=== PATIENT | female | born 1985 | race Caucasian/White ===

== ENCOUNTER 2016-06-12 06:50 | Inpatient (IN) | payer BC ==
[2016-06-12] MEDS ORDERED: IV START KIT ONE (07:19)
[2016-06-12] MEDS ORDERED: OXYTOCIN IN NS 500 ML IV ONE (07:20)
[2016-06-12] MEDS ORDERED: OXYTOCIN 10 UNITS/ML VIAL ONE (07:20)
[2016-06-12] MEDS ORDERED: LIDOCAINE 1% (PRES FREE) 30 ML VIAL ONE (07:20)
[2016-06-12] MEDS ORDERED: MINERAL OIL 25 ML BOT ONE (07:20)
[2016-06-12] MEDS ORDERED: PUMP TUBING ONE (07:20)
[2016-06-12] MEDS ORDERED: LIDOCAINE Viscous 2% 15 ML UDCUP ONE (07:20)
[2016-06-12] MEDS ORDERED: LACTATED RINGERS 1,000 ML ONE (07:20)
[2016-06-12] MEDS ORDERED: OXYTOCIN IN NS 334 ML IV PRN (07:51)
[2016-06-12 08:00] LABS: HEMATOCRIT 38.2 % (37.0-47.0); HEMOGLOBIN 12.9 gm/l (12.0-16.0); MEAN CELL VOLUME 91.8 fl (81.0-99.0); MEAN CORPUSCULAR HGB CONC 33.8 g/dl (33.0-37.0); RED CELL DISTRIBUTION WIDTH 14.2 % (11.5-14.5)
[2016-06-12 08:06] VITALS: BMI 36.6
[2016-06-12 08:19] LABS: AMPHETAMINES/METHAMPHETAMINES NEGATIVE (NEGATIVE); COCAINE NEGATIVE (NEGATIVE); MARIJUANA NEGATIVE (NEGATIVE); METHADONE NEGATIVE (NEGATIVE); OPIATES NEGATIVE (NEGATIVE); TRICYCLIC ANTIDEPRESSANTS NEGATIVE (NEGATIVE)
--- NOTE | 2016-06-12 08:38 | PDOC36 ---
Provider Note Note: cc: Admission H&P HPI: 31 y.o. year old DEREK 06/19/2016, by Ultrasound at 39w0d who presents for induction of labor for GDMA1. REVIEW OF SYSTEMS GENERAL:~ No fever or headache EYES:~ No double or blurry vision. CARDIOVASCULAR:~ No chest pain. RESPIRATORY:~ No severe shortness of breath or cough. GASTROINTESTINAL:~ No nausea or vomiting or right upper quadrant pain.~ PSYCHIATRIC:~ No anxiety or depression. PROBLEMS Term GDMA1 Tobacco use Abnormal Quad Screen History of Kidney Stones History of cocaine and marijuana use OB HISTORY #: 1, Date: 05/29/07, Sex: Female, Weight: 3.062 kg (6 lb 12 oz), GA: 40w0d, Delivery: Vaginal, Spontaneous Delivery, Apgar1: None, Apgar5: None, Living: Yes , Comments: in hospital for 2.5 days during pregnacy d/t kidney stones.~ #: 2, Date: None, Sex: None, Weight: None, GA: None, Delivery: None, Apgar1: None, Apgar5: None, Living: None, Comments: None PSH Ovarian Cystectomy Tonsillectoy SOC HX Reports that she has been smoking.~ She started smoking about 13 years ago. She has never used smokeless tobacco. She reports that she drinks alcohol. She reports that she uses illicit drugs (Marijuana and Cocaine). ALL No Known Allergies MEDICATIONS Current outpatient prescriptions:~ Vitamins 1 tablet by mouth everyday PHYSICAL EXAMINATION VITAL SIGNS:~ Estimated body mass index is 35.36 Total weight gain is 22.68 kg (50 lb) FHT:~ 130s category I [place]:~ q 2-4 min SVE:~ 3/80/-2 GENERAL:~ No distress CARDIOVASCULAR:~ Regular rate and rhythm, no murmur, JVD or pedal edema. RESPIRATORY:~ Clear to auscultation bilaterally, respiratory effort is nonlabored at rest. GASTROINTESTINAL:~ Gravid no fundal tenderness NEUROLOGIC:~ Deep tendon reflexes are 2+ in the knees.~ Cranial nerves II-XII are grossly intact. PSYCHIATRIC:~ Alert and oriented x3, judgement and memory is intact, mood is pleasant. LABS & STUDIES B+ Antibody- Rubella Immune Hep B- HIV- GC/Chlamydia- Trep- Hgb 11.2 GBS Negative ULTRASOUNDS 7 wk - [facility], changes DEREK, FHT 160 24 wks - DI, normal anatomy, male, posterior placenta, no previa ASSESSMENT 31 y.o. year old DEREK 06/19/2016, by Ultrasound at 39w0d here for induction of labor for GDMA1. PLAN GDMA1: CBG x 1, otherwise controlled during . AROM x clear fluid this AM, will continue to monitor with expectation of a vaginal delivery. History of Cocaine and MJ Use: UDS today and will consult Social Work. Tobacco Use: Discussed smoking cessation. Louis Hernandes MD MPH
[2016-06-12] MEDS ORDERED: FENTANYL 100 MCG/2 ML VIAL ONE (09:08)
[2016-06-12] MEDS ORDERED: FENTANYL 100 MCG/2 ML VIAL IV PRN (09:08)
[2016-06-12] MEDS ORDERED: FENTANYL/ROPIVACAINE EPIDURAL 250 ML EP ONE (10:05)
[2016-06-12] MEDS ORDERED: EPIDURAL PUMP SET ONE (10:05)
[2016-06-12] MEDS ORDERED: EPIDURAL PROCEDURE TRAY ONE (10:16)
[2016-06-12] MEDS ORDERED: NALOXONE HCL 0.4 MG/ML VIAL IV PRN (11:01)
[2016-06-12] MEDS ORDERED: ONDANSETRON 4 MG/2ML 2 ML VIAL IV PRN (11:01)
[2016-06-12] MEDS ORDERED: LACTATED RINGERS 500 ML IV PRN (11:01)
[2016-06-12] MEDS ORDERED: NALBUPHINE HCL 20 MG/ML AMP IV PRN (11:01)
[2016-06-12] MEDS ORDERED: EPHEDRINE SULFATE 50 MG/ML 1ML VIAL IV PRN (11:01)
[2016-06-12] MEDS ORDERED: DIPHENHYDRAMINE HCL 50 MG/1 ML VIAL IV PRN (11:01)
[2016-06-12] MEDS ORDERED: SODIUM CHLORIDE 0.9% 500 ML IV PRN (11:01)
--- NOTE | 2016-06-12 12:51 | PDOC36 ---
Provider Note Note: SUBJECTIVE: Patient complete, now with an epidural OBJECTIVE: VS: AFVSS FHT: 110-120 variable decels, category II [place]: q2-3 min SVE: Complete ASSESSMENT: 31 yo at 39 weeks IOL for GDMA1 PLAN: Complete, will start pushing with expectation of .
[2016-06-12] MEDS ORDERED: BENZOCAINE/MENTHOL 60 APPLIC/BOT TP PRN (13:35)
[2016-06-12] MEDS ORDERED: OXYTOCIN IN NS 167 ML IV PRN (13:35)
[2016-06-12] MEDS ORDERED: DOCUSATE SODIUM 100 MG CAPSULE PO PRN (13:35)
[2016-06-12] MEDS ORDERED: LANOLIN 50 APPLIC/7G TUBE TP PRN (13:35)
[2016-06-12] MEDS ORDERED: MAGNESIUM HYDROXIDE 30 ML UDCUP PO PRN (13:35)
[2016-06-12] MEDS ORDERED: OXYCODONE HCL 5 MG TABLET PO PRN (13:35)
[2016-06-12] MEDS ORDERED: OXYCODONE/ACETAMINOPHEN 5/325 MG TABLET PO PRN (13:35)
[2016-06-12] MEDS ORDERED: ACETAMINOPHEN 325 MG TABLET PO PRN (13:35)
[2016-06-12] MEDS ORDERED: SENNOSIDES 8.6 MG TABLET PO PRN (13:35)
[2016-06-12] MEDS ORDERED: PNEUMOCOCCAL 23-VAL P-SAC VAC 0.5 ML VIAL IM V ONE (14:20)
--- NOTE | 2016-06-12 14:31 | PCMDEL ---
Delivery Note - Delivery Delivery (Date): 06/12/16 Delivery (Time): 12:59 Gender: Male Presentation: Cephalic Position: OP Umbilical Cord: 3 Vessel Delayed Cord Clamping:: < 1-2 min 1 Minute Total: 10 5 Minute Total: 10 Placenta:: 13:04 EBL:: 150 mL Perineum:: 2nd degree perineal repaired with 2-0 vicryl in a running fashion without complication. Suture:: 2-0 vicryl Anesthesia/Meds:: Fentanyl and Epidural Length ROM:: 4 hrs
[2016-06-12] MEDS: IBUPROFEN 800 MG TABLET PO PRN ×2 (15:46→23:03)
[2016-06-12] MEDS ORDERED: MORPHINE SULFATE 4 MG/ML SYRINGE IV PRN (20:18)
[2016-06-13] MEDS: LACTATED RINGERS 1,000 ML IV SCH ×3 (00:22→13:03)
[2016-06-13] MEDS: IBUPROFEN 800 MG TABLET PO PRN ×2 (06:09→16:12)
[2016-06-13] MEDS ORDERED: MORPHINE SULFATE (DURAMORPH) 1 MG/ML 10ML AMP ONE (07:03)
[2016-06-13] MEDS ORDERED: MIDAZOLAM HCL 5 MG/5 ML VIAL ONE (07:03)
[2016-06-13] MEDS ORDERED: PROPOFOL 20 ML IV ONE ×2 (07:03→09:37)
[2016-06-13] MEDS ORDERED: SPINAL PROCEDURAL TRAY 1 EACH ONE (07:03)
[2016-06-13] MEDS ORDERED: FENTANYL 100 MCG/2 ML VIAL ONE (07:03)
[2016-06-13] MEDS ORDERED: BUPIVACAINE 0.75% SPINAL AMPUL 2 ML ONE (07:03)
--- NOTE | 2016-06-13 07:08 | PDOC36 ---
Provider Note Note: cc: Preop H&P HPI: 31 y.o. year old PPD#1 who presents for BTL. REVIEW OF SYSTEMS GENERAL:~ No fever or headache CARDIOVASCULAR:~ No chest pain. RESPIRATORY:~ No severe shortness of breath or cough. GASTROINTESTINAL:~ No nausea or vomiting.~ PSYCHIATRIC:~ No anxiety or depression. PROBLEMS GDMA1 Tobacco use History of Kidney Stones History of cocaine and marijuana use PSH Ovarian Cystectomy Tonsillectomy SOC HX Reports that she has been smoking.~ She started smoking about 13 years ago. She has never used smokeless tobacco. She reports that she drinks alcohol. She reports that she uses illicit drugs (Marijuana and Cocaine). ALL No Known Allergies MEDICATIONS Vitamins 1 tablet by mouth everyday PHYSICAL EXAMINATION VITAL SIGNS:~ AFVSS GENERAL:~ No distress CARDIOVASCULAR:~ Regular rate and rhythm, no murmur, JVD or pedal edema. RESPIRATORY:~ Clear to auscultation bilaterally, respiratory effort is nonlabored at rest. GASTROINTESTINAL:~ Soft nontender, fundus in firm and below the umbilicus NEUROLOGIC:~ Cranial nerves II-XII are grossly intact. PSYCHIATRIC:~ Alert and oriented x3, judgement and memory is intact, mood is pleasant. LABS & STUDIES Hgb 12.9 GBS Negative ASSESSMENT 31 y.o. year old PPD#1 who presents for BTL. PLAN I reviewed the risks and benefits of, and alternatives to, a bilateral tubal ligation (BTL). She understands that this is considered permanent sterilization , and that equally effective but reversible methods exist. These methods have previously been discussed with her. She understands that a BTL is not 100% effective. There is a failure risk of approximately 1-3% over 10 years. She understands that if she becomes after a BTL she is at an increased risk of having an ectopic, or tubal , which can be dangerous and even deadly. I reviewed the importance of taking a test should she have any future signs or symptoms of . I also reviewed the age-related risk of regret (approximately 20% for women under age 30, or 6% for those 30 or older). Further, we discussed the surgical risks including risk of bleeding ( she states that she would accept blood products if medically necessary; we reviewed R/B), risk of infection (wound infection - possibly leading to dehiscence, or pelvic infection), as well as risk of damage to surrounding organs/tissues (including, but not limited to, bladder, bowel, ureters, uterus, ovaries, tubes, blood vessels and nerves). We reviewed that any of these surgical risks could necessitate further treatment or surgeries. She understands that there is a risk of conversion to laparotomy. She voices understanding and wishes to proceed. All questions were answered. Louis Hernandes MD MPH
[2016-06-13] MEDS ORDERED: PROMETHAZINE HCL 25 MG/ML VIAL IM PRN (08:00)
[2016-06-13] MEDS ORDERED: NALOXONE HCL 0.4 MG/ML VIAL IV PRN (08:00)
[2016-06-13] MEDS ORDERED: EPHEDRINE SULFATE 50 MG/ML 1ML VIAL IV PRN (08:00)
[2016-06-13] MEDS ORDERED: DIPHENHYDRAMINE HCL 50 MG/1 ML VIAL IV PRN (08:00)
[2016-06-13] MEDS ORDERED: HYDROMORPHONE HCL 2 MG/ML SYRINGE IV PRN (08:00)
[2016-06-13] MEDS ORDERED: ONDANSETRON 4 MG/2ML 2 ML VIAL IV PRN (08:00)
[2016-06-13] MEDS ORDERED: MORPHINE SULFATE 4 MG/ML SYRINGE IV PRN (08:00)
[2016-06-13] MEDS ORDERED: MORPHINE SULFATE 2 MG/ML SYRINGE IV PRN (08:00)
[2016-06-13] MEDS ORDERED: MORPHINE SULFATE 10 MG/ML SYRINGE IV PRN (08:00)
[2016-06-13] MEDS ORDERED: HYDROMORPHONE HCL 1 MG/ML SYRINGE IV PRN (08:00)
[2016-06-13] MEDS ORDERED: NALBUPHINE HCL 20 MG/ML AMP IV PRN (08:00)
[2016-06-13] MEDS ORDERED: KETOROLAC TROMETHAMINE 30 MG/ML 1 ML VIAL ONE (08:22)
[2016-06-13] MEDS ORDERED: KETAMINE HCL UD SYRINGE 100 MG/2 ML IV ONE (09:38)
[2016-06-13] MEDS ORDERED: MIDAZOLAM HCL 1 MG/ML 2ML VIAL ONE (09:40)
[2016-06-13] MEDS ORDERED: LIDOCAINE 2%/EPI (PRES FREE) 20 ML VIAL ONE (10:03)
--- NOTE | 2016-06-13 10:30 | PCMBTL ---
Note:: DATE OF PROCEDURE 06/13/16 PREOPERATIVE DIAGNOSES Desires Sterility POSTOPERATIVE DIAGNOSES Same PROCEDURE [facility] SURGEON Louis Hernandes MD ANESTHESIA Spinal COMPLICATIONS During postop period, nurse noted a stitch had come through the skin, I clipped the suture after cleaning with betadine. I was worried this could have been a fascial stitch, although I doubted it but took her back to the OR to check the integrity of the fascial stitch to be sure. ESTIMATED BLOOD LOSS 5 mL URINE OUTPUT 25 mL IV FLUIDS 1400 mL START TIME 07:57 mL IMPLANTS None SPECIMENS Right and Left fallopian tubes FINDINGS Normal uterus, tubes and ovaries OPERATIVE NOTE After ensuring informed consent, the patient was taken to the OR where spinal anesthesia was ensured without complications. She was prepped and draped in the usual sterile fashion. Anesthesia was found to be adequate. A small transverse infraumbilical skin incision was made. Cynthia clamps were used to bluntly dissect down to the underlying level of fascia which was tented up and entered sharply with the scalpel. An Jr was inserted. The left fallopian tube was identified, grasped with the Lawton clamps, and followed out distally until the fimbriae were identified. An avascular midsection of the tube was then clamped and brought into a knuckle at the skin incision. The tube was doubly ligated with 0 plain sutures and transected. The speciman was sent to pathology. The identical procedure was performed on the right fallopian tube. excellent hemostasis was noted. The Jr was removed. The fascia was then closed with 2-0 Vicryl in a single layer. The skin was closed with 4-0 Monocryl in a subcuticular fashion. The patient tolerated the procedure well. Sponge and needle counts were correct times two. The patient was taken to the recovery room in stable condition. .
[2016-06-13] MEDS ORDERED: HYDROCODONE/ACETAMINOPHEN 5/325MG TABLET PO PRN (10:41)
[2016-06-13] MEDS ORDERED: OXYCODONE/ACETAMINOPHEN 5/325 MG TABLET PO PRN (10:41)
[2016-06-13] MEDS ORDERED: BENZOCAINE/MENTHOL 60 APPLIC/BOT TP PRN (10:41)
[2016-06-13] MEDS ORDERED: ACETAMINOPHEN 325 MG TABLET PO PRN (10:41)
[2016-06-13] MEDS ORDERED: LANOLIN 50 APPLIC/7G TUBE TP PRN (10:41)
[2016-06-13] MEDS ORDERED: LACTATED RINGERS 1,000 ML IV SCH (10:45)
[2016-06-13] MEDS ORDERED: IBUPROFEN 800 MG TABLET PO SCH (10:45)
--- NOTE | 2016-06-13 10:52 | PDOC36 ---
Provider Note Note: DATE OF PROCEDURE 06/13/16 HISTORY 31 year old PPD#1 POD#0 from BTL, noted to have a stitch that was coming through the skin in the postop area. I evaluated the stitch and clipped it, I was then worried that the stitch may be the fascial stitch and decided to take her back while her spinal was still intact to make sure the fascia was still intact. PREOPERATIVE DIAGNOSES Question of Fascial Integrity POSTOPERATIVE DIAGNOSES Fascial Integrity Intact PROCEDURE Exploration of Operative Incision SURGEON Louis Hernandes MD ANESTHESIA Propofol 1% Lidocaine with Epi COMPLICATIONS None ESTIMATED BLOOD LOSS 1% URINE OUTPUT 0 mL IV FLUIDS 95 mL START TIME 10:12 mL IMPLANTS None SPECIMENS None FINDINGS Intact fascial suture OPERATIVE NOTE After ensuring informed consent, the patient was taken to the OR where spinal anesthesia was ensured without complications. She was prepped and draped in the usual sterile fashion. Anesthesia was found to be adequate. The skin incision was reopened and the sutures were removed from the adipose tissure. The fascial stitch was explored visually and digitally and found to be intact. Excellent hemostasis was noted. The adipose was closed with 2-0 vicryl in a running fashion. The skin was closed with 4-0 Monocryl in a subcuticular fashion. The patient tolerated the procedure well. Sponge and needle counts were correct times two. The patient was taken to the recovery room in stable condition. .
[2016-06-13] MEDS ORDERED: BUPIVACAINE 0.5% (PRES FREE) 30 ML VIAL ONE (12:03)
[2016-06-13 12:40] LABS: HEMATOCRIT 33.3 % (37.0-47.0); MEAN CELL VOLUME 94.6 fl (81.0-99.0); MEAN CORPUSCULAR HEMOGLOBIN 31.3 pg (27.0-31.0); RED CELL DISTRIBUTION WIDTH 14.6 % (11.5-14.5)
[2016-06-13] MEDS: FENTANYL/ROPIVACAINE EPIDURAL 250 ML EP SCH (12:59)
[2016-06-13] MEDS ORDERED: KETOROLAC TROMETHAMINE 30 MG/ML 1 ML VIAL IV SCH (14:30)
[2016-06-14] MEDS: IBUPROFEN 800 MG TABLET PO PRN (01:28)
[2016-06-14 06:28] LABS: HEMATOCRIT 34.4 % (37.0-47.0); HEMOGLOBIN 11.4 gm/l (12.0-16.0)
[2016-06-14 08:18] VITALS: BP 141/79
[2016-06-14] MEDS ORDERED: MAGNESIUM HYDROXIDE 30 ML UDCUP PO PRN (08:41)
[2016-06-14] MEDS ORDERED: DOCUSATE SODIUM 100 MG CAPSULE PO SCH (09:00)
--- NOTE | 2016-06-14 09:53 | PDOC39B ---
Hospital Course: ADMIT DATE: 06/12/16 DISCHARGE DATE: 06/14/16 ADMISSION DIAGNOSES: Induction of labor due to Gestational Diabetes PROCEDURES: Normal Spontaneous Vaginal Delivery and Bilateral Tubal Ligation HISTORY OF PRESENT ILLNESS/HOSPITAL COURSE: 31 year old G2 T1 L1 at 39 weeks 0 days presented for induction of labor in the setting of Gestational Diabetes. She progressed well to a normal spontaneous vaginal delivery. On PPD # 1 she desired a bilateral tubal ligation. Please refer to details of this procedure as dictated by Dr. Hernandes. By day of discharge the patient is ambulating, eating, voiding, and passing flatus without difficulty. Pain is controlled and lochia is appropriate. She is . - Physical Exam Vital Signs: Temp Pulse Resp BP Pulse Ox 99 F 71 20 141/83 96 06/13/16 19:50 06/14/16 01:29 06/14/16 01:29 06/14/16 01:29 06/13/16 12:10 General: Afebrile, No Acute Distress Neurological: Alert, Oriented x 4 Lungs: Clear to Auscultation Bilaterally Cardiovascular: Regular Rate and Rhythm Fundus: Firm, Midline Extremities: Full ROM, No Edema Skin: Normal Color, Warm, Dry, Intact, No Rash Wound: Dressing Saturated, Erythema, Well Approximated - Discharge Diagnosis (1) (normal spontaneous vaginal delivery) Status: AcuteAssessment/Plan: PPD 2 after after IOL for GDM and POD 1 after ppBTL. Normal exam except for some mild erythema and edema above and below incisions, nl vitals. +BF. Patient had a ppBTL yesterday with some complications and had to be taken back to the OR for a second time. Per surgeon Dr. Hernandes, he was worried that after clipping a stitch that was coming through the skin, the stitch might have been a fascial stitch which it didn't wrap turner to be. -will send home with course of Cephalexin PO (2) Gestational diabetes mellitus Status: AcuteAssessment/Plan: GDM was diet controlled. - Discharge Plan Condition: Good Disposition: Home Prescriptions: Docusate Sodium [COLACE 100 MG CAPSULE (SHF)] 100 mg PO BID PRN #60 cap PRN Reason: Constipation Ibuprofen [Motrin] 800 mg PO TID PRN #30 tablet PRN Reason: Pain Cephalexin [KEFLEX 500 MG CAPSULE (SHF)] 500 mg PO QID #40 cap Oxycodone HCl/Acetaminophen [PERCOCET 5/325 MG TABLET (SHF)] 1 tab PO Q4-6H PRN #20 tab PRN Reason: Severe Pain Follow-Up: Inessa Uriostegui MD [Primary Care Provider] - In 6 weeks
--- NOTE | 2016-06-15 13:15 | SURGPATH ---
[facility] [address] [place] [id number] Patient Name: DENNIS MAX MR#: [id number] : 1985 Gender: F Specimen #: [id number] Collected: 06/13/2016 Received: 06/14/2016 Reported: 06/15/2016 Submitting Phys: ALEAH GARCIA Copy To Phys: [facility] Clinical History / Pre-Operative Diagnosis: None provided Specimen Source / Surgical Procedure Performed: Right and left fallopian tubes (stitch on right)- bilateral tubal ligation Interpretation: FALLOPIAN TUBES, RIGHT AND LEFT, TUBAL LIGATION: - COMPLETE CROSS SECTIONS OF RIGHT AND LEFT FALLOPIAN TUBES Electronically Signed Out Carmel Blank M.D. Gross Description: The specimen is received in a formalin filled container labeled with the patient's name and "right and left fallopian tubes". Two cylindrical segments of osborne tissue are each 1.1 x 0.5 cm. One segment has an attached suture and is inked black. A field service representative cross section of each is submitted in one cassette. Radha Giles Microscopic Description: Complete cross-sections of inked and uninked fallopian tubes are seen, without significant pathologic changes. A cystic walthard rest is seen in the left fallopian tube. 1: 02075(3) Z30.2
== END 2016-06-14 12:13 | disposition home or self-care (01) | DRG 767 ==
LOC: FBC 06:50 → EDSTATUS 06-19 09:30
PROVIDERS: ADMIT Family Medicine; ATTEND Family Medicine
PROC: 10E0XZZ Delivery of Products of Conception, External Approach (ICD-10-PCS; principal; 2016-06-12)
PROC: 0KQM0ZZ Repair Perineum Muscle, Open Approach (ICD-10-PCS; 2016-06-12)
PROC: 3E0P7GC Introduction of Other Therapeutic Substance into Female Reproductive, Via Natural or Artificial Opening (ICD-10-PCS; 2016-06-12)
PROC: 10907ZC Drainage of Amniotic Fluid, Therapeutic from Products of Conception, Via Natural or Artificial Opening (ICD-10-PCS; 2016-06-12)
PROC: 0UT70ZZ Resection of Bilateral Fallopian Tubes, Open Approach (ICD-10-PCS; 2016-06-13)
DX: O24.420 Gestational diabetes mellitus in childbirth, diet controlled (principal); O99.324 Drug use complicating childbirth; F19.20 Other psychoactive substance dependence, uncomplicated; F12.10 Cannabis abuse, uncomplicated; Z3A.39 39 weeks gestation of pregnancy; Z37.0 Single live birth; O99.334 Smoking (tobacco) complicating childbirth; F17.210 Nicotine dependence, cigarettes, uncomplicated; O76 Abnormality in fetal heart rate and rhythm complicating labor and delivery; O70.1 Second degree perineal laceration during delivery; Z30.2 Encounter for sterilization